=== PATIENT | male | born 1955 | race Caucasian/White ===

== ENCOUNTER 2017-07-25 06:26 | Inpatient (IN) ==
[2017-07-24 12:46] LABS: Appearance,Urine CLEAR; Bacteria,Urine 0 /hpf (0); Bilirubin,Urine NEG (NEG); Color,Urine YELLOW; Glucose,Urine (UA) >=500 mg/dL (NEG); Leukocyte Esterase,Urine NEG /uL (NEG); Mucus,Urine FEW /hpf (0); Protein,Urine NEG (NEG); Specific Gravity,Urine 1.028 (1.000-1.035); Urine Blood NEG mg/dL (<0.03); Urine RBC < 1 /hpf (0-1); Urine Squamous Epithelial Cell 1 /hpf (0-4); Urine WBC < 1 /hpf (0-4); Urobilinogen,Urine NEG (NEG)
[2017-07-24 15:11] LABS: Basophils # (Auto) 0 K/mcL (0.0-0.3); Basophils % (Auto) 0.4 % (0.0-2.0); Eosinophils # (Auto) 0.2 K/mcL (0.0-0.7); Granulocytes % (Auto) 64.3 % (38.0-78.0); Lymphocytes # (Auto) 1.2 K/mcL (1.5-4.8); Lymphocytes % (Auto) 23.8 % (15.5-49.0); Mean Cell Volume 87.8 fL (80.0-100.0); Mean Corpuscular HGB Conc 33.4 g/dL (31.0-36.0); Mean Corpuscular Hemoglobin 29.3 pg (26.0-34.0); Monocytes # (Auto) 0.4 K/mcL (0.1-0.9); Monocytes % (Auto) 8.5 % (1.0-12.0); Platelet Count 206 K/mcL (140-440); RBC 5.18 M/mcL (4.50-5.90); Red Cell Distribution Width 15.8 % (11.5-14.5)
[2017-07-24 15:26] LABS: Blood Urea Nitrogen 28 mg/dl (6-20)
[~2017-07-25 06:26] MED LIST: CELECOXIB 200 MG CAPSULE PO SCH; IPRATROPIUM/ALBUTEROL 3 ML AMPUL.NEB NEB PRN; PREGABALIN 75 MG CAPSULE PO SCH; SCOPOLAMINE 1 PATCH PATCH TOPICAL PRN; ceFAZolin 1 GM VIAL IV SCH; oxyCODONE 10 MG TAB.ER.12H PO SCH
[2017-07-25] MEDS ORDERED: KETOROLAC 30 MG, ROPIVACAINE HCL/PF 49.5 ML, EPINEPHrine 0.5 MG, 0.9 % SODIUM CHLORIDE ... IJ SCH (06:30)
[2017-07-25] MEDS ORDERED: DEXAMETHASONE 10 MG/ML VIAL IV ONE (08:40)
[2017-07-25] MEDS ORDERED: GLYCOPYRROLATE 0.2 MG/ML VIAL IV ONE (08:40)
[2017-07-25] MEDS ORDERED: PROPOFOL 200 MG/20 ML VIAL IV ONE (08:40)
[2017-07-25] MEDS ORDERED: ONDANSETRON 4 MG/2 ML VIAL IV ONE (08:40)
[2017-07-25] MEDS ORDERED: LIDOCAINE HCL/PF 100 MG/5 ML SYRINGE IV ONE (08:40)
[2017-07-25] MEDS ORDERED: ROPIVACAINE HCL/PF 30 ML VIAL IJ ONE (08:40)
[2017-07-25] MEDS ORDERED: KETAMINE 100 MG/ML ML IV ONE (08:40)
[2017-07-25] MEDS ORDERED: MIDAZOLAM 5 MG/5 ML VIAL IV ONE (08:40)
[2017-07-25] MEDS ORDERED: TRANEXAMIC ACID 1,000 MG/10 ML VIAL IV ONE (08:40)
[2017-07-25] MEDS ORDERED: GENTAMICIN SULFATE 800 MG/20 ML VIAL IR ONE (09:12)
[2017-07-25] MEDS ORDERED: METHOCARBAMOL 1,000 MG/10 ML VIAL IV PRN (10:01)
[2017-07-25] MEDS ORDERED: fentaNYL 100 MCG/2 ML VIAL IV PRN (10:01)
[2017-07-25] MEDS ORDERED: IPRATROPIUM/ALBUTEROL 3 ML AMPUL.NEB NEB PRN (10:01)
[2017-07-25] MEDS ORDERED: PROMETHAZINE 25 MG/ML VIAL IV PRN (10:01)
[2017-07-25] MEDS ORDERED: ONDANSETRON 4 MG/2 ML VIAL IV PRN ×2 (10:01→10:29)
[2017-07-25] MEDS ORDERED: ACETAMINOPHEN 1,000 MG/100 ML BOTTLE IV ONE (10:01)
[2017-07-25] MEDS ORDERED: MEPERIDINE 25 MG/ML SYRINGE IV PRN (10:01)
[2017-07-25] MEDS ORDERED: LACTATED RINGERS 1,000 ML IV SCH (10:15)
[2017-07-25] MEDS ORDERED: TRANEXAMIC ACID 1,000 MG/10 ML VIAL IV SCH (10:29)
[2017-07-25] MEDS ORDERED: BISACODYL 10 MG SUPP.RECT PR PRN (10:29)
[2017-07-25] MEDS ORDERED: MAGNESIUM HYDROXIDE 30 ML ORAL.SUSP PO PRN (10:29)
[2017-07-25] MEDS ORDERED: BENZOCAINE/MENTHOL 1 LOZENGE PO PRN (10:29)
[2017-07-25] MEDS ORDERED: DEXTROSE 31 GM ORAL.SUSP PO PRN (10:29)
[2017-07-25] MEDS ORDERED: ONDANSETRON ODT 4 MG TABLET SL PRN (10:29)
[2017-07-25] MEDS ORDERED: METHOCARBAMOL 750 MG TABLET PO PRN (10:29)
[2017-07-25] MEDS ORDERED: FLEETS ADULT ENEMA PR PRN (10:29)
[2017-07-25] MEDS ORDERED: POLYETHYLENE GLYCOL 3350 17 GM PACKET PO PRN (10:29)
[2017-07-25] MEDS ORDERED: DEXTROSE 50% 50 ML VIAL IV PRN (10:29)
[2017-07-25] MEDS ORDERED: ACETAMINOPHEN 325 MG TABLET PO PRN (10:29)
--- NOTE | 2017-07-25 10:29 | Brief Operative Note ---
Date of procedure: 07/25/17 Pre-op diagnosis: left knee oa Post-op diagnosis: same Procedure: left total knee arthroplasty Grafts/Implants: Yes Anesthesia: spinal Complications: none Surgeon: Raheem Lira Reconciling Clerk: Manjula Johnson Estimated blood loss (cc): 150 Tourniquet Time (Minutes): 73 Specimens Removed/Pathology: none sent Condition: stable Disposition: PACU
--- NOTE | 2017-07-25 11:05 | Operative Note ---
DATE OF OPERATION: 07/25/2017 PREOPERATIVE DIAGNOSIS: Degenerative joint disease, left knee. POSTOPERATIVE DIAGNOSIS: Degenerative joint disease, left knee. PROCEDURE: Left total knee arthroplasty. SURGEON: Eliecer Lira M.D. PMP PROJECT MANAGER SURGEON: Manjula Johnson PA-C ANESTHESIA: Spinal with LMA assist. ESTIMATED BLOOD LOSS: 150 mL COMPLICATIONS: None noted. SPECIMENS REMOVED: None. DRAINS: None. TOURNIQUET TIME: 300 mmHg x73 minutes. IMPLANTS: DePuy CMW2 gentamycin bone cement 20 grams x4, DePuy Attune femoral posterior stabilized size 8 left cemented, DePuy Attune knee system revision cemented stem 14 x 50, DePuy Attune tibial insert fixed bearing posterior stabilized size 8, 7 mm AOX, DePuy Attune revision tibial based fixed bearing x7 cemented, DePuy Attune patella medialized dome 41 mm cemented AOX. INDICATIONS: The patient has had a long-standing history of worsening pain in the knee that has failed conservative treatment. Radiographs have confirmed advanced degenerative joint disease. After a long discussion about treatment options, the patient elected to proceed with a knee arthroplasty. The risks and benefits were discussed with the patient in detail including, but not limited to, the risks of anesthesia, problems with the heart or lungs related to anesthesia, infection, compromise or injury to the nerves and blood vessels, deep venous thrombosis, pulmonary embolism, pneumonia, continued pain after surgery, worsening pain or symptoms after surgery, swelling, loss of motion, instability, leg length discrepancy, and need for repeat surgery. DESCRIPTION OF PROCEDURE: The patient was seen in the pre-anesthesia waiting room where all questions were answered and the correct side and site were identified and marked. The patient was transferred to the operating room and administered the anesthetic and given pre-operative antibiotics. A time-out was then called. The extremity was prepped and draped, exsanguinated, and the tourniquet was inflated to 300 mmHg. A midline skin incision was then made with a standard medial parapatellar arthrotomy. Debridement of the menisci, ACL, and PCL was performed followed by balancing releases in the medial lateral plane. We then established intramedullary access to both the femur and tibia in a standard fashion. The femoral guide marcy was initially placed with the distal femoral guide, pinned into place, and the distal femoral cut was performed and checked with a flat plate. We then turned our attention to the tibia. The intramedullary guide was placed with the proximal tibial cutting block. The block was appropriately positioned off the affected side, varus and valgus was checked with the extra-medullary guide, and the block was pinned into place. The proximal tibial cut was performed and the tibia was prepared for the tibial implant with stem with appropriate rotation. The tibia, femur, and posterior compartment were debrided of osteophytes, loose bodies, and meniscal fragments. We then used the gap balancing technique to balance extension with the first two cuts and good balancing was obtained with a 10 millimeter gap block. We turned our attention back to the femur and used the referencing block and implant to size appropriately. Using the gap balancing technique for the flexion space we set our rotation of the femur off the tibial cut. Anesthesia gave the patient 1 gram of Tranexamic Acid via an intravenous route. We placed the 4 in 1 cutting block and made anterior, posterior, and chamfer cuts. Box plasty cuts were then made in a standard fashion for the posterior stabilized prosthesis. We then completed osteophyte release and posterior capsule release from the posterior compartment. Trials were placed and we chose the polyethylene insert thickness that provided the best stability in all planes. With the trials in place, we did a measured resection for a resurfacing patella. We sized the patella and placed the patella trial and performed a lateral facetectomy with the saw and rongeur. Good tracking was obtained. We removed all trials, irrigated and dried all cut surfaces. We cemented the components into place including tibia, femur and patella. We placed a trial liner and held the knee in full extension with the patella compressed while the cement cured. We then removed all excess cement and placed the final polyethylene tibiofemoral component. Irrigation with 3 liters of antibiotic saline was then performed using jet-lavage. We let the tourniquet down and coagulated bleeding vessels. We injected a 100 cubic centimeter volume including Ropivacaine 49.25 cubic centimeters at 5 milligrams per cubic centimeter, Ketorolac 30 milligrams, and Epinephrine 0.5 milligrams into 100 cubic centimeters volume of normal saline. We closed the retinaculum with looped #2 Stratafix and 0 Vicryl. We closed the subcutaneous tissue and skin in layers out to Dermabond on the skin. A sterile pressure dressing was applied. All needle and sponge counts were correct. The patient was transferred to the recovery room in stable condition. DANNY:susi Job ID: [id number] Doc ID: [id number] Eliecer Lira MD
--- NOTE | 2017-07-25 11:38 | XRay Report ---
CLINICAL INFORMATION: Reason for Exam:Post-Op Total Knee COMPARISON: None. FINDINGS: Total knee prostheses is anatomically aligned. No osseous abnormality. Periarticular gas and soft tissue swelling seen as expected IMPRESSION: Negative Interpreted and Authenticated by: Raheem Schmidt 07/25/17
[2017-07-25] MEDS: 0.9 % SODIUM CHLORIDE 1,000 ML IV SCH ×2 (12:03→20:54)
[2017-07-25] MEDS: KETOROLAC 30 MG/ML VIAL IV SCH ×2 (12:39→17:57)
[2017-07-25] MEDS: 0.9 % SODIUM CHLORIDE 10 ML SYRINGE IV SCH ×2 (13:47→20:54)
[2017-07-25] MEDS: INSULIN LISPRO 1 UNIT/0.01 ML UNIT SQ SCH ×3 (13:47→21:27)
[2017-07-25] MEDS: ceFAZolin 1 GM VIAL IV SCH (16:43)
[2017-07-25] MEDS ORDERED: [UNRECOGNIZED DRUG - OTHER] PO SCH (17:30)
[2017-07-25] MEDS ORDERED: METFORMIN HCL PO SCH (17:30)
[2017-07-25] MEDS ORDERED: PIOGLITAZONE HCL PO SCH (17:30)
[2017-07-25] MEDS: metFORMIN 850 MG TABLET PO SCH (17:57)
[2017-07-25] MEDS: PIOGLITAZONE 15 MG TABLET PO SCH (18:00)
[2017-07-25] MEDS: DOCUSATE SODIUM 100 MG CAPSULE PO SCH (20:51)
[2017-07-25] MEDS: ASPIRIN 325 MG ENTERIC COATED TABLET PO SCH (20:51)
[2017-07-25] MEDS: HYDROcodone/APAP 10/325MG TABLET PO PRN (20:52)
[2017-07-25] MEDS ORDERED: SENNOSIDES 1 TABLET PO SCH (21:00)
[2017-07-25] MEDS ORDERED: SIMVASTATIN 20 MG TABLET PO SCH (21:00)
[2017-07-26] MEDS: HYDROcodone/APAP 10/325MG TABLET PO PRN ×2 (00:53→12:24)
[2017-07-26] MEDS: KETOROLAC 30 MG/ML VIAL IV SCH ×3 (00:53→12:29)
[2017-07-26] MEDS: ceFAZolin 1 GM VIAL IV SCH (00:58)
[2017-07-26] MEDS: 0.9 % SODIUM CHLORIDE 1,000 ML IV SCH ×2 (02:11→12:29)
[2017-07-26] MEDS: 0.9 % SODIUM CHLORIDE 10 ML SYRINGE IV SCH (06:02)
--- NOTE | 2017-07-26 06:21 | Discharge Summary ---
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 Chief Complaint: [POD #1 s/p left TKA Patient doing very well. Ambulating okay, urinating independently. Reports minimal pain. Denies chest pain, SOB, numbness, tingling or calf pain in extremities. No questions or concerns.] Discharge date: 07/26/17 Hospitalization Hospital course: Patient was brought to OR 07/25 for left TKA which went on without difficulty. Patient was admitted overnight for pain control and observation. His stay occurred without complication. He will d/c to home today and follow up in the office in 10-14 days. Discharge diagnosis: knee osteoarthritis Exam - Exam Incision healing: Yes Incision draining: No Incision red: No Incision swollen: No Incision inflamed: No Clean and dry: Yes Weight bearing status: as tolerated Range of motion: 0 ext/50 flex. Full AROM b/l ankles/feet. Ortho Discharge - TKA - Patient Instructions Diet: Regular Diet Activity: activity as tolerated, ambulate with assistive device, weight bearing as tolerated Total Knee Protocol: For Total Knee: Start ROM LILY with stationary bike or rocking chair. Work on gaining full extension of knee. Posterior dislocation precautions provided. Hip abductor strengthening and gait training instructions provided. Apply Cryocuff as instructed. Dressing Care: May shower in 2 days, Other (Dermabond protocol) - Follow Up Plan Follow Up Appointments: Raheem Lira MD [Physician] - 08/09/17 8:30 am Disposition: Home, Self-Care Prognosis: Good Rehab Potential: Good I certify that the patient requires SNF services: No Overall status at discharge: patient is progressing back to baseline - Orders For Discharge Prescriptions: Aspirin [Ecotrin] 325 mg PO BID #60 tab.ec Docusate Sodium [Colace] 100 mg PO BID #60 cap HYDROcodone/APAP 10/325MG [[place] 10-325Mg] 1 - 2 tab PO Q4HP PRN #60 tab PRN Reason: Pain Level 3-6 Methocarbamol [Robaxin] 750 mg PO Q6HP PRN #45 tab PRN Reason: Muscle Spasm Additional Discharge Orders: Physical Therapy at Discharge - TKA Location: Determined By Patient CPM Discharge Order Location: Determined By Patient Pending Studies Resuscitation Status Full Code Diet Regular Diet Start MonJul 25 Dinner Hydrocodone Bitart/Acetaminophen ([place] 10/325mg) 0 tab PO Q4HP PRN PRN Reason: PAIN LEVEL 3-6 Last Admin: 07/26/17 00:53 Dose: 2 tab Admin: 07/25/17 20:52 Dose: 1 tab Aspirin (Ecotrin) 325 mg PO BID [facility] Last Admin: 07/25/17 20:51 Dose: 325 mg Diagnostic Test (Pha) (Accu-Chek) 1 each FS ACHS [facility] Last Admin: 07/25/17 21:07 Dose: 1 each Admin: 07/25/17 17:45 Dose: 1 each Admin: 07/25/17 12:08 Dose: 1 each Docusate Sodium (Colace) 100 mg PO BID [facility] Last Admin: 07/25/17 20:51 Dose: 100 mg Sodium Chloride (Sodium Chloride 0.9%) 1,000 mls @ 125 mls/hr IV .Q8H [facility] Last Admin: 07/26/17 02:11 Dose: Infusion: 07/26/17 02:11 Dose: 0 mls/hr Admin: 07/25/17 20:54 Dose: Not Given Admin: 07/25/17 12:03 Dose: 125 mls/hr Insulin Human Lispro (Humalog) 0 unit SQ [facility] PRN Reason: Protocol Last Admin: 07/25/17 21:27 Dose: 8 unit Admin: 07/25/17 17:45 Dose: 6 unit Admin: 07/25/17 13:47 Dose: Ketorolac Tromethamine (Toradol) 15 mg IV Q6 [facility] Stop: 07/27/17 06:01 Last Admin: 07/26/17 06:00 Dose: 15 mg Admin: 07/26/17 00:53 Dose: 15 mg Admin: 07/25/17 17:57 Dose: 15 mg Admin: 07/25/17 12:39 Dose: 15 mg Metformin HCl (Glucophage) 850 mg PO BIDCC [facility] Last Admin: 07/25/17 17:57 Dose: 850 mg Pioglitazone HCl (Actos) 15 mg PO BIDCC [facility] Last Admin: 07/25/17 18:00 Dose: 15 mg Senna (Senokot) 2 tab PO HS [facility] Last Admin: 07/25/17 20:52 Dose: 2 tab Simvastatin (Zocor) 20 mg PO HS [facility] Last Admin: 07/25/17 20:52 Dose: 20 mg Sodium Chloride (Saline Flush) 10 ml IV Q8 [facility] Last Admin: 07/26/17 06:02 Dose: 10 ml Admin: 07/25/17 20:54 Dose: Not Given Admin: 07/25/17 13:47 Dose: Not Given Throat Lozenges (Cepacol) 1 lozenge PO PRN PRN PRN Reason: Sore Throat Last Admin: 07/25/17 22:44 Dose: 1 lozenge Shift Summary 07/26/17 04:51 Shift Summary by Ernestina [email or web address]. VSS on RA. Up with FWW and SBA. 18 gauge to LFA is SL. Dressing to surgical site to left knee is CDI. Ambulated in hallway last night. Used CPM for 90 min; up to 60 degrees flexion. Using Cryo-cuff periodically; foot pumps in place. Medicated with 1 tablet [place] 10/325mg at 2052, patient verbalized little improvement with pain; medicated with 2 tablets at 0053, patient verbalized pain improvement. Voiding per urinal in bathroom; last PVR was 0ml. BG at HS was 261; covered with 8 units Humalog. Will update at bedside. Initialized on 07/26/17 04:51 - END OF NOTE Exam Temp Pulse Resp BP Pulse Ox 98.6 F 87 16 112/64 95 07/26/17 04:00 07/26/17 04:00 07/26/17 04:00 07/26/17 04:00 07/26/17 04:00 - General physical appearance well developed, well nourished - Cardiovascular Peripheral pulses: 2+: dorsalis pedis (L), dorsalis pedis (R), posterior tibialis (L), posterior tibialis (R) Cardiovascular: cap refill < 3 sec - Neurologic Present: normal sensation - Psychiatric Present: oriented to time, oriented to person, oriented to place - Additional Findings all extremities NVI
[2017-07-26 07:23] LABS: Estimated Average Glucose(eAG) 157 mg/dL; Hemoglobin A1C 7.1 % HGB (4.0-6.0)
[2017-07-26 07:42] LABS: ALT/SGPT 10 U/l (0-40); Albumin 3.6 gm/dL (3.2-5.2); Alkaline Phosphatase 61 U/L (39-117); Blood Urea Nitrogen 33 mg/dl (6-20)
[2017-07-26] MEDS: metFORMIN 850 MG TABLET PO SCH (08:09)
[2017-07-26] MEDS: PIOGLITAZONE 15 MG TABLET PO SCH (08:10)
[2017-07-26] MEDS: INSULIN LISPRO 1 UNIT/0.01 ML UNIT SQ SCH ×2 (08:11→12:37)
[2017-07-26] MEDS ORDERED: Dapagliflozin Propanediol [Farxiga] 10 MG Tablet PO SCH (09:00)
[2017-07-26] MEDS ORDERED: TESTOSTERONE TOPICAL SCH (09:00)
[2017-07-26] MEDS ORDERED: LISINOPRIL 10 MG TABLET PO SCH (09:00)
[2017-07-26] MEDS: ASPIRIN 325 MG ENTERIC COATED TABLET PO SCH (09:27)
[2017-07-26] MEDS: DOCUSATE SODIUM 100 MG CAPSULE PO SCH (09:27)
== END 2017-07-26 15:52 | disposition home or self-care (01) | DRG 470 ==
LOC: MEDSUR 06:26 → EDSTATUS 08:30
PROVIDERS: ADMIT Orthopaedic Surgery Sports Medicine; ATTEND Orthopaedic Surgery Sports Medicine